=== PATIENT | male | born 1980 | race Caucasian/White ===

== ENCOUNTER 2020-07-28 12:36 | Emergency (ER) | payer MEDICAID ==
[~2020-07-28] VITALS: Ht 177.8 cm; Wt 116.7 kg
[2020-07-28 12:49] VITALS: BP 110/63
--- NOTE | 2020-07-28 13:49 | NUR ---
[employer]: PT TO ROOM FROM [facility]
--- NOTE | 2020-07-28 13:55 | NUR ---
PT TO RADIOLOGY AT THIS TIME.
--- NOTE | 2020-07-28 13:58 | NUR ---
PATIENT TO IMAGING.
--- NOTE | 2020-07-28 14:09 | NUR ---
PATIENT CHIEF C/O LEFT BIG TOE SWELLING AND PAIN. PATIENT CLIPPED TOENAILS LAST WEEK AND SINCE HAS BEEN HAVING PAIN AND SWELLING. PATIENT STATES, "FEELS LIKE I'M STEPPING ON BROKEN GLASS." TOE IS RED AND TENDER TO TOUCH, NO DISCHARGE NOTED, TOENAIL INTACT.
[2020-07-28] MEDS ORDERED: LIDOCAINE-MPF 1%, 5ML INFIL ONE (14:30)
[2020-07-28] MEDS ORDERED: LIDOCAINE-MPF 1%, 5ML ONE (14:34)
--- NOTE | 2020-07-28 14:58 | NUR ---
ERPA AT BEDSIDE FOR TOENAIL REMOVAL.
[2020-07-28] MEDS ORDERED: NEOSPORIN OINT. PKT 1 PACKET ONE (15:11)
--- NOTE | 2020-07-28 15:32 | NUR ---
[employer]ER AT BEDSIDE DRESSING TOE.
--- NOTE | 2020-07-28 15:41 | NUR ---
Patient given discharge instructions and prescription and they have confirmed that they understand the instructions. All questions answered. Patient stable and ambulatory with steady gait from ED.
== END 2020-07-28 15:42 | disposition home or self-care (01) ==
LOC: ED 14:24
DX: L60.0 Ingrowing nail (principal); M79.89 Other specified soft tissue disorders
CPT/HCPCS: 11730; 99284